=== PATIENT | female | born 1970 | race Caucasian/White ===

== ENCOUNTER 2017-05-16 11:03 | Emergency (ER) | payer MEDICAID, OTHER ==
[~2017-05-16] VITALS: Ht 175.3 cm; Wt 123.0 kg
[~2017-05-16 11:03] MED LIST: ASPI81TA82 PO; BUSP5 PO; CHLO.12%30 SSP; CLIN1CAP5 PO; KETO10 PO; NAPR-576 PO; PRAV20 PO; SUMA100T2 PO; TOPI50TA4 PO; TOPR50TA PO
[2017-05-16 11:05] VITALS: PULSE 100; RESP 22; TEMP 98.8; O2SAT 98
[2017-05-16] MEDS ORDERED: CLON1 PO (11:33)
[2017-05-16] MEDS ORDERED: LEVO25TA4 PO (11:33)
[2017-05-16] MEDS ORDERED: TOPI200 PO (11:33)
[2017-05-16] MEDS ORDERED: ASPI-516 CHEW (11:33)
[2017-05-16] MEDS ORDERED: AMLO10TA2 PO (11:33)
[2017-05-16] MEDS ORDERED: IMIT100T PO (11:33)
[2017-05-16] MEDS ORDERED: METO50TA PO (11:33)
[2017-05-16] MEDS ORDERED: PRAV20TA2 PO (11:33)
[2017-05-16 11:40] VITALS: BP 188/94; PULSE 94; RESP 18; TEMP 98.7; O2SAT 97
[2017-05-16] MEDS ORDERED: PROCHLORPERAZINE INJ 10 MG/2 ML VIAL IV PUSH ONE (11:45)
[2017-05-16] MEDS ORDERED: SODIUM CHLOR 0.9% 1000 ML INJ 1,000 ML IV ONE (11:45)
[2017-05-16] MEDS ORDERED: KETOROLAC TROMETHAMINE 30 MG/ML (IVP) VIAL IV PUSH ONE (11:45)
--- NOTE | 2017-05-16 11:47 | PD ---
HPI Chief Complaint: Respiratory Symptoms Time Seen by Provider: 11:36 Travel History International Travel<30 days: No Contact w/Intl Traveler<30days: No Traveled to known affect area: No History of Present Illness HPI This 46-year-old female says she been coughing for the past month and she is occasional tightness in her chest. She has dyspnea on exertion. She has a history of asthma. She is also been having migraine headache for several days. Bilateral throbbing headache. She has taken Imitrex without much response. She does not have any weakness. PFSH Past Medical History Arthritis: Yes Asthma: Yes Blood Disorders: No Anxiety: Yes Heart Rhythm Problems: No Cancer: No Cardiovascular Problems: Yes (HTN) High Cholesterol: Yes Chest Pain: No Congestive Heart Failure: No Cerebrovascular Accident: No Diabetes: No Diminished Hearing: No Endocrine: No Gastrointestinal Disorders: No Glaucoma: No Genitourinary: No Headaches: Yes Hepatitis: No Hiatal Hernia: No Hypertension: Yes Immune Disorder: No Implanted Vascular Access Dvce: No Medical other: Yes (ARTHRITIS) Musculoskeletal: No Neurologic: Yes Psychiatric: No Reproductive: No Respiratory: Yes (Seasonal asthma ) Immunizations Current: Yes Migraines: No Seizures: Yes Thyroid Disease: No Tetanus Vaccination: < 5 Years Influenza Vaccination: No ?: Not Menopausal: No Tubal Ligation: Yes (1997) Past Surgical History Abdominal Surgery: Yes AICD: No Cardiac Surgery: No Cholecystectomy: Yes (AGE 25) Ear Surgery: No Endocrine Surgery: No Eye Surgery: No Genitourinary Surgery: Yes Gynecologic Surgery: Yes Joint Replacement: No Neurologic Surgery: No Oral Surgery: No Pacemaker: No Thoracic Surgery: No Tonsillectomy: Yes ( CHILD) Other Surgery: Yes (RT LEG VEIN STRIPPING) Social History Alcohol Use: Yes (OCC) Tobacco Use: No Substance Use: No Allergies-Medications (Allergen,Severity, Reaction): Coded Allergies: amoxicillin (Unverified Allergy, Severe, rash, 05/16/17) metoclopramide (Unverified Allergy, Severe, Anaphylaxis, 05/16/17) Reported Meds & Prescriptions Reported Meds & Active Scripts Active Reported Metoprolol Tartrate 50 Mg Tab 50 Mg PO BID Imitrex (Sumatriptan Succinate) 100 Mg Tab 100 Mg PO ONCE PRN If a satisfactory response has not been obtained at 2 hours, a second dose may be administered Levothyroxine (Levothyroxine Sodium) 25 Mcg Tab 25 Mcg PO DAILY Pravastatin 20 Mg Tab 20 Mg PO HS Topamax (Topiramate) 200 Mg Tab 200 Mg PO BID Amlodipine (Amlodipine Besylate) 10 Mg Tab 10 Mg PO DAILY Klonopin (Clonazepam) 1 Mg Tab 1 Mg PO BID Aspirin 81 Mg Chew 81 Mg CHEW DAILY Review of Systems General / Constitutional: No: Fever, Chills Eyes: Positive: Photophobia, No: Diploplia HENT: Positive: Headaches Cardiovascular: No: Chest Pain or Discomfort, Palpitations Respiratory: Positive: Cough, Shortness of Breath Gastrointestinal: No: Vomiting, Diarrhea Genitourinary: No: Urgency, Frequency Skin: No Rash, No Itching Neurologic: No: Weakness Hematologic/Lymphatic: No: Easy Bruising Physical Exam Narrative GENERAL: Well-developed female complaining of headache SKIN: Focused skin assessment warm/dry. HEAD: Atraumatic. Normocephalic. EYES: Pupils equal and round. No scleral icterus. No injection or drainage. ENT: No nasal bleeding or discharge. Mucous membranes pink and moist. NECK: Trachea midline. No JVD. CARDIOVASCULAR: Regular rate and rhythm. No murmur appreciated. RESPIRATORY: No accessory muscle use. There are scattered rhonchi and occasional wheeze. Breath sounds equal bilaterally. GASTROINTESTINAL: Abdomen soft, non-tender, nondistended. Hepatic and splenic margins not palpable. MUSCULOSKELETAL: No obvious deformities. No clubbing. No cyanosis. No edema. NEUROLOGICAL: Awake and alert. No obvious cranial nerve deficits. Motor grossly within normal limits. Normal speech. PSYCHIATRIC: Appropriate mood and affect; insight and judgment normal. Data Data Last Documented VS Vital Signs Date Time Temp Pulse Resp B/P (MAP) Pulse Ox O2 Delivery O2 Flow Rate FiO2 05/16/17 11:05 98.8 100 22 98 Orders Orders Electrocardiogram (05/16/17 11:43) Complete Blood Count With Diff (05/16/17 11:43) Basic Metabolic Panel (Bmp) (05/16/17 11:43) Chest, Single Ap (05/16/17 11:43) Sodium Chlor 0.9% 1000 Ml Inj (Ns 1000 M (05/16/17 11:45) Prochlorperazine Inj (Compazine Inj) (05/16/17 11:45) Ketorolac Inj (Toradol Inj) (05/16/17 11:45) Methylprednisolone So Succ Inj (Solumedr (05/16/17 12:00) Labs Laboratory Tests Test 05/16/17 12:50 White Blood Count 5.4 TH/MM3 Red Blood Count 4.30 MIL/MM3 Hemoglobin 10.8 GM/DL Hematocrit 34.5 % Mean Corpuscular Volume 80.3 FL Mean Corpuscular Hemoglobin 25.2 PG Mean Corpuscular Hemoglobin Concent 31.4 % Red Cell Distribution Width 13.9 % Platelet Count 216 TH/MM3 Mean Platelet Volume 7.9 FL Neutrophils (%) (Auto) 60.2 % Lymphocytes (%) (Auto) 30.0 % Monocytes (%) (Auto) 7.8 % Eosinophils (%) (Auto) 1.4 % Basophils (%) (Auto) 0.6 % Neutrophils # (Auto) 3.3 TH/MM3 Lymphocytes # (Auto) 1.6 TH/MM3 Monocytes # (Auto) 0.4 TH/MM3 Eosinophils # (Auto) 0.1 TH/MM3 Basophils # (Auto) 0.0 TH/MM3 CBC Comment DIFF FINAL Differential Comment Blood Urea Nitrogen 8 MG/DL Creatinine 0.71 MG/DL Random Glucose 96 MG/DL Calcium Level 8.2 MG/DL Sodium Level 139 MEQ/L Potassium Level 3.9 MEQ/L Chloride Level 105 MEQ/L Carbon Dioxide Level 26.2 MEQ/L Anion Gap 8 MEQ/L Estimat Glomerular Filtration Rate 89 ML/MIN [facility] Medical Decision Making Medical Screen Exam Complete: Yes Emergency Medical Condition: Yes Medical Record Reviewed: Yes Differential Diagnosis Chest x-ray is negative. Patient was given some IV fluids is having ongoing headache. Her white count is normal. I am going order 1 dose of Dilaudid. She will be released with prescription for doxycycline and Medrol Dosepak Narrative Course Differential includes migraine headache, bronchitis, pneumonia Diagnosis Primary Impression: Acute bronchitis Additional Impression: Migraine headache Scripts Tramadol (Tramadol) 50 Mg Tab 50 MG PO Q6H Y for PAIN, #12 TAB 0 Refills Prov: Ty Walls MD 05/16/17 Methylprednisolone Dosepak (Medrol Dosepak) 4 Mg Dspk 4 MG PO DIRECTED, #1 DSPK 0 Refills Per Pharmacist direction Prov: Ty Walls MD 05/16/17 Cephalexin (Keflex) 500 Mg Capsule 500 MG PO Q6H for Infection for 7 Days, #28 CAP 0 Refills Prov: Ty Walls MD 05/16/17 Disposition: 01 DISCHARGE HOME Condition: Stable Ty Walls MD May 16, 2017 11:47
[2017-05-16] MEDS ORDERED: methylPREDNISolone SOD SUCC 125 MG/2 ML VIAL IV PUSH ONE (12:00)
[2017-05-16 12:58] LABS: AUTOMATED NEUTROPHIL # 3.3 TH/MM3 (1.8-7.7); BASOPHIL % 0.6 % (0.0-2.0); EOSINOPHIL # 0.1 TH/MM3 (0-0.4); EOSINOPHIL % 1.4 % (0.0-4.0); HEMATOCRIT 34.5 % (35.0-46.0); HEMOGLOBIN 10.8 GM/DL (11.6-15.3); LYMPHOCYTE # 1.6 TH/MM3 (1.0-4.8); MEAN CELL VOLUME 80.3 FL (80.0-100.0); MEAN CORPUSCULAR HEMOGLOBIN 25.2 PG (27.0-34.0); MEAN CORPUSCULAR HGB CONC 31.4 % (32.0-36.0); MEAN PLATELET VOLUME 7.9 FL (7.0-11.0); MONO % 7.8 % (0.0-8.0); MONOCYTE # 0.4 TH/MM3 (0-0.9); NEUT % 60.2 % (16.0-70.0); PLATELET COUNT 216 TH/MM3 (150-450); RED CELL DISTRIBUTION WIDTH 13.9 % (11.6-17.2); WHITE BLOOD COUNT 5.4 TH/MM3 (4.0-11.0)
[2017-05-16 13:13] LABS: BICARBONATE 26.2 MEQ/L (21.0-32.0); CALCIUM 8.2 MG/DL (8.5-10.1)
[2017-05-16 13:17] LABS: CREATININE 0.71 MG/DL (0.50-1.00)
[2017-05-16] MEDS ORDERED: CEPH-460 PO (13:23)
[2017-05-16] MEDS ORDERED: TRAM50TA PO (13:23)
[2017-05-16] MEDS ORDERED: MEDR4PAK PO (13:23)
[2017-05-16] MEDS ORDERED: HYDROmorphone HCL PF 1 MG/ML VIAL IV PUSH ONE (13:30)
--- NOTE | 2017-05-16 13:59 | RADRPT ---
EXAM DATE/TIME: 05/16/2017 11:50 [facility] COMPARISON: No previous studies available for comparison. INDICATIONS : Cough and short of breath MEDICAL HISTORY : Seasonal asthma SURGICAL HISTORY : None. ENCOUNTER: Initial ACUITY: 3 days PAIN SCORE: 0/10 LOCATION: Bilateral chest FINDINGS: A single view of the chest demonstrates the lungs to be symmetrically aerated without evidence of mas s, infiltrate or effusion. The cardiomediastinal contours are unremarkable. Osseous structures are intact. CONCLUSION: No evidence of acute cardiopulmonary process. Willian Roth MD on May 16, 2017 at 12:17 Board Certified Radiologist. This report was verified electronically.
[2017-05-16] MEDS ORDERED: HYDROmorphone HCL PF 2 MG/ML VIAL IV PUSH ONE (14:00)
[2017-05-16 14:21] VITALS: BP 151/84
--- NOTE | 2017-05-17 22:53 | EKG ---
Date Performed: 05/16/2017 Time Performed: 11:54:31 PTAGE: 46 years EKG: Sinus rhythm NORMAL ECG PREVIOUS TRACING : 09/10/2013 12.16 Since the prior tracing, there has been no significant aguilera yevgeniy DOCTOR: Floyd Blackburn Interpretating Date/Time 05/17/2017 22:51:23
== END 2017-05-16 14:22 | disposition home or self-care (01) ==
LOC: PHED 11:03
DX: J20.9 Acute bronchitis, unspecified (principal); G43.909 Migraine, unspecified, not intractable, without status migrainosus; I10 Essential (primary) hypertension
CPT/HCPCS: 71045; 80048; 85025; 93005; 96361; 96374; 96375; 99285; J0780; J1885; J2930; J7030